=== PATIENT | male | born 1980 | race African-American/Black ===

== ENCOUNTER 2018-11-27 08:25 | Emergency (ER) | payer BC ==
[~2018-11-27] VITALS: Ht 167.6 cm; Wt 59.9 kg
[2018-11-27 08:29] VITALS: BP 138/98
--- NOTE | 2018-11-27 08:29 | NUR ---
Patient ambulated to bed 4 at this time.
--- NOTE | 2018-11-27 08:35 | NUR ---
38/m bib friend C/O heart pounding & shankiness s/p DRANK APPROX 7-8 SHOTS OF HARD LIQUOR. x last night. med hx: VARICOSE VEINS right leg. PATIENT STATES PAIN OF 0/10 AT THIS TIME. PATIENT POSITIONED FOR COMFORT; HOB ELEVATED; BEDRAILS UP X1; BED DOWN. ER MD MADE AWARE OF PT STATUS.
--- NOTE | 2018-11-27 08:47 | NUR ---
Patient being evaluated by DR LEDESMA at bedside.
[2018-11-27] MEDS ORDERED: LORazepam 2 MG/ML VIAL IVP ONE (08:50)
[2018-11-27] MEDS ORDERED: NACL 0.9% 2,000 ML IV ONE (08:50)
[2018-11-27 09:37] LABS: BASOPHILS # (AUTO) 0.1 K/uL (0.00-0.22); BASOPHILS % (AUTO) 2.6 % (0.0-2.0); EOSINOPHILS % (AUTO) 1.4 % (0.0-4.0); HEMATOCRIT 50.5 % (36-52); HEMOGLOBIN 17.7 g/dL (12.0-18.0); LYMPHOCYTES # (AUTO) 1.2 K/uL (2.0-11.5); LYMPHOCYTES % (AUTO) 36.9 % (20.5-51.1); MEAN CORPUSCULAR HEMOGLOBIN 35 pg (27-31); MEAN CORPUSCULAR HGB CONC 35 g/dL (33-37); MEAN CORPUSCULAR VOLUME 99.1 fL (80-94); MONOCYTES # (AUTO) 0.6 K/uL (0.8-1.0); MONOCYTES % (AUTO) 18.6 % (1.7-9.3); NEUTROPHILS # (AUTO) 1.3 K/uL (1.8-7.7); NEUTROPHILS % (AUTO) 40.5 % (42.2-75.2); PLATELET COUNT (AUTO) 124 K/uL (140-450); RED BLOOD CELL COUNT(AUTO) 5.09 MIL/uL (4.20-6.10); RED CELL DISTRIBUTION WIDTH 13.1 % (11.6-13.7); WHITE BLOOD COUNT (AUTO) 3.1 K/uL (4.8-10.8)
[2018-11-27 09:46] LABS: ANION GAP 18.6 (8-16); CARBON DIOXIDE 24.9 mmol/L (21-32); CHLORIDE 99 mmol/L (98-107); CREATININE 0.7 mg/dL (0.7-1.3); GFR ARICAN-AMERICAN 162 mL/min (>90); GLUCOSE 88 mg/dL (74-106); POTASSIUM 3.5 mmol/L (3.5-5.1); SODIUM SERUM 139 mmol/L (136-145); UREA NITROGEN, BLOOD 4 mg/dL (7-18)
[2018-11-27 09:52] LABS: ALBUMIN 4.3 g/dL (3.4-5.0); ASPARTATE AMINOTRANSFERASE 332 U/L (15-37); SALICYLATE 5.3 mg/dL (2.8-20.0); TOTAL BILIRUBIN 1.1 mg/dL (0.0-1.0)
[2018-11-27 09:53] LABS: ACETAMINOPHEN < 0.5 ug/ml (10-30)
[2018-11-27 10:26] LABS: BARBITURATE, URINE NEG. ng/ml (NEG <=200); BENZODIAZEPINE, URINE NEG. ng/mL (NEG <=200); CANNABINOID, URINE NEG. ng/mL (NEG <=50); COCAINE, URINE NEG. ng/mL (NEG <=300); OPIATE, URINE NEG. ng/mL (NEG <=2000); PHENCYCLIDINE SCREEN,URINE NEG. ng/mL (NEG <=25)
[2018-11-27 10:53] VITALS: BP 110/83
== END 2018-11-27 10:56 | disposition home or self-care (01) ==
LOC: MED 08:25
DX: F10.129 Alcohol abuse with intoxication, unspecified (principal); F17.210 Nicotine dependence, cigarettes, uncomplicated; Z71.6 Tobacco abuse counseling
CPT/HCPCS: 36415; 80053; 80305; 81002; 85025; 93005; 96374; 99284; G0480; G0482; J2060; J7030

== ENCOUNTER 2019-11-06 12:48 | Emergency (ER) | payer BC ==
[~2019-11-06] VITALS: Ht 170.2 cm; Wt 49.9 kg
--- NOTE | 2019-11-06 12:50 | NUR ---
PT AMBULATED TO BED 2.
[2019-11-06 13:04] VITALS: BP 124/87
--- NOTE | 2019-11-06 13:07 | NUR ---
38 YO MALE CO ETOH. PT STATES THAT HE HAS HAD 3 VODKAS AND SEVERAL BEERS TODAY. PT IS UNABLE TO COMMUNICATE EFFECTIVLEY AT THIS TIME. PT DENIES ANY DRUG USE. UNABLE TO OBTAIN MED HX OR RX
[2019-11-06] MEDS ORDERED: NACL 0.9% 1,000 ML IV ONE (13:20)
[2019-11-06 14:33] VITALS: BP 124/87
--- NOTE | 2019-11-06 14:33 | NUR ---
Patient discharged with v/s stable. Written and verbal after care instructions given and explained. Patient verbalized understanding. Ambulatory with steady gait. All questions addressed prior to discharge. Advised to follow up with PMD.
== END 2019-11-06 14:33 | disposition home or self-care (01) ==
LOC: MED 12:48
DX: F10.129 Alcohol abuse with intoxication, unspecified (principal); Y90.9 Presence of alcohol in blood, level not specified
CPT/HCPCS: 96360; 99283; J7030